=== PATIENT | female | born 2005 | race Caucasian/White ===

== ENCOUNTER 2023-02-01 17:02 | Outpatient (CLI) | payer OTHER, SELFPAY ==
--- NOTE | 2023-02-01 17:00 | CRLHL7_ITS ---
For Patients: As a result of the Century Cures Act, medical imaging exams and procedure reports are released immediately into your electronic medical record. You may view this report before your referring provider. If you have questions, please contact your health care provider. CLINICAL HISTORY: Pelvic and perineal pain TECHNIQUE: 2D molina scale ultrasound. In addition color Doppler and spectral Doppler analysis was performed of the pelvis using a transabdominal and transvaginal approach. FINDINGS: The myometrium has a normal uniform echotexture. The uterus measures 7.1 x 3.3 x 4.0 cm. The endometrial lining appears normal and measures 4 mm in thickness. The right ovary measures 2.7 x 1.9 x 2.1 cm in size and the left ovary measures 2.7 x 1.1 x 1.7 cm. The ovaries demonstrate normal arterial and venous blood flow on color Doppler and spectral Doppler analysis. There are no suspicious fluid collections within the cul-de-sac. IMPRESSION: Normal pelvic ultrasound. No ovarian torsion. No adnexal mass or excess pelvic free fluid. Dictated by David Sullivan MD @ 02/02/2023 9:59:23 AM (Electronically Signed)
== END 2023-02-01 17:03 | disposition home or self-care (01) ==
PROVIDERS: Visit Provider Registered Nurse
DX: R10.2 Pelvic and perineal pain (principal)
CPT/HCPCS: 76830; 76856; 93976

== ENCOUNTER 2023-03-03 13:38 | Outpatient (CLI) | payer OTHER, SELFPAY ==
--- NOTE | 2023-03-03 14:00 | CRLHL7_ITS ---
For Patients: As a result of the Century Cures Act, medical imaging exams and procedure reports are released immediately into your electronic medical record. You may view this report before your referring provider. If you have questions, please contact your health care provider. Indication: ABD PAIN. RT MID TO LOWER SIDE. NAUSEA X 1 MONTH Technique: Postcontrast CT abdomen and pelvis. 74 cc Isovue 370 intravenous contrast. Please note that all CT scans at this facility use dose modulation, iterative reconstruction, and/or weight-based dosing when appropriate to reduce radiation dose to as low as reasonably achievable. Comparison: Pelvic ultrasound 02/01/2023 Findings: Clear lung bases. Normal liver, gallbladder, spleen, pancreas, adrenal glands, kidneys and ureters. No bowel obstruction, free air or abscess. Normal appendix. Trace physiologic free fluid. Normal bladder, uterus and ovaries. Osseous structures normal. Impression: Unremarkable CT of the abdomen and pelvis. Please note that all CT scans at this facility use dose modulation, iterative reconstruction, and/or weight-based dosing when appropriate to reduce radiation dose to as low as reasonably achievable. Dictated by David Sullivan MD @ 03/05/2023 5:34:20 PM (Electronically Signed)
== END 2023-03-03 13:39 | disposition home or self-care (01) ==
LOC: CT 13:40
PROVIDERS: PCP Pediatrics; Visit Provider Pediatrics
DX: R10.9 Unspecified abdominal pain (principal)
CPT/HCPCS: 74177; Q9967